=== PATIENT | male | born 1965 | race Caucasian/White ===

== ENCOUNTER 2020-05-10 17:11 | Emergency (ER) | payer MEDICARE, OTHER ==
[~2020-05-10 17:11] MED LIST: ARTIFICIAL TEAR15 M6 OS; PREDNISONE 20MG20 MG PO; VALACYCLOVIR500 MG PO; VISTARIL50 MG PO
[2020-05-10 19:07] LABS: BASOPHIL 0.6 % (0-2); EOSINOPHIL 2.8 % (0-5); HCT 40.9 % (42.0-52.0); HGB 13.7 g/dl (13.2-18.0); LYMPHOCYTE 34.4 % (15-48); MCHC 33.5 g/dL (32.0-36.0); MCV 89.7 fL (78.0-100.0); MONOCYTE 10.7 % (0-12); MPV 10.1 fL (6.0-9.5); NEUTROPHIL 50.8 % (41-80); NRBC 0; PLT 346 K/uL (150-400); RBC 4.56 M/uL (4.70-6.00); RDW 13.5 % (11.5-14.0); WBC 7.1 K/uL (4.0-10.5)
[2020-05-10 19:14] LABS: BILIRUBIN NEGATIVE (NEGATIVE); BLOOD NEGATIVE Ery/uL (NEGATIVE); CLARITY CLEAR (CLEAR); COLOR YELLOW (YELLOW); GLUCOSE (U) NORMAL (NORMAL); LEUKOCYTES NEGATIVE Leu/uL (NEGATIVE); NITRITE NEGATIVE (NEGATIVE); PROTEIN TRACE (LOW) mg/dL (NEGATIVE); SPECIFIC GRAVITY >=1.030 (1.001-1.030); UROBILINOGEN 0.2 mg/dL (0.2-1.0)
[2020-05-10 19:20] LABS: BACTERIA TRACE; URINARY WBC RARE
[2020-05-10 19:23] LABS: BILIRUBIN - TOTAL 0.4 mg/dL (0.2-1.0); BUN/CREAT RATIO (CALC) 12.7 RATIO; CREATININE 1.02 mg/dL (0.67-1.17); POTASSIUM 3.3 mmol/L (3.5-5.1)
[2020-05-10] MEDS ORDERED: CITRATE OF MAG296 ML PO (21:36)
== END 2020-05-10 21:55 | disposition home or self-care (01) ==
LOC: FER 17:11
PROVIDERS: Emergency Medicine
DX: K59.00 Constipation, unspecified (principal); R11.0 Nausea; R19.7 Diarrhea, unspecified; F17.210 Nicotine dependence, cigarettes, uncomplicated; Z87.19 Personal history of other diseases of the digestive system; Z88.0 Allergy status to penicillin
CPT/HCPCS: 36415; 74022; 80053; 81001; 82150; 83690; 85025; 87339; J2270; J2405; J7030

== ENCOUNTER 2020-08-26 07:12 | Emergency (ER) | payer MEDICARE, OTHER ==
[~2020-08-26 07:12] MED LIST changes: +CITRATE OF MAG296 ML PO
[2020-08-26 07:48] LABS: BASOPHIL 0.2 % (0-2); EOSINOPHIL 0.7 % (0-5); HCT 44.7 % (42.0-52.0); HGB 14.5 g/dl (13.2-18.0); LYMPHOCYTE 15.5 % (15-48); MCH 27.8 pg (25.0-31.0); MCHC 32.4 g/dL (32.0-36.0); MCV 85.8 fL (78.0-100.0); MONOCYTE 4.1 % (0-12); MPV 9.9 fL (6.0-9.5); NRBC 0; PLT 344 K/uL (150-400); RBC 5.21 M/uL (4.70-6.00); RDW 14.6 % (11.5-14.0); WBC 8.5 K/uL (4.0-10.5)
[2020-08-26 08:06] LABS: BILIRUBIN - TOTAL 0.3 mg/dL (0.2-1.0); BUN/CREAT RATIO (CALC) 12.1 RATIO; CREATININE 0.91 mg/dL (0.67-1.17); GLOBULIN (CALCULATION) 4.4 g/dL; POTASSIUM 3.5 mmol/L (3.5-5.1); TOTAL PROTEIN 8.4 g/dL (6.4-8.2)
[2020-08-26 08:16] LABS: BILIRUBIN NEGATIVE (NEGATIVE); BLOOD NEGATIVE Ery/uL (NEGATIVE); CLARITY CLEAR (CLEAR); COLOR YELLOW (YELLOW); GLUCOSE (U) NORMAL (NORMAL); LEUKOCYTES NEGATIVE Leu/uL (NEGATIVE); NITRITE NEGATIVE (NEGATIVE); PROTEIN NEGATIVE (NEGATIVE); SPECIFIC GRAVITY <=1.005 (1.001-1.030); UROBILINOGEN 0.2 mg/dL (0.2-1.0)
[2020-08-26 08:29] LABS: AMPHETAMINES NEGATIVE (NEGATIVE); BARBITURATES NEGATIVE (NEGATIVE); ECSTASY (MDMA) NEGATIVE (NEGATIVE); MARIJUANA (THC) NEGATIVE (NEGATIVE); METHADONE NEGATIVE (NEGATIVE); OPIATES NEGATIVE (NEGATIVE); OXYCODONE NEGATIVE (NEGATIVE)
== END 2020-08-26 10:28 | disposition home or self-care (01) ==
LOC: FER 07:12
PROVIDERS: Emergency Medicine
DX: I10 Essential (primary) hypertension (principal); G89.29 Other chronic pain; M54.9 Dorsalgia, unspecified; E11.9 Type 2 diabetes mellitus without complications; F17.210 Nicotine dependence, cigarettes, uncomplicated; Z76.5 Malingerer [conscious simulation]; Z88.0 Allergy status to penicillin
CPT/HCPCS: 36415; 80053; 80305; 81003; 85025; J1885; J7030

== ENCOUNTER 2021-03-03 09:40 | Emergency (ER) | payer OTHER ==
[~2021-03-03 09:40] MED LIST changes: +DULOXETINE HCL30 MG PO; +FLONASE ALLER15.8 ML; +GABAPENTIN600 MG PO; +OMEPRAZOLE 20MG20 MG PO; +ONDANSETRON HCL4 MG PO; +OXYCODONE HCL10 MG PO; +PANTOPRAZOLE SO40 MG PO; +PREGABALIN200 MG PO; +TAMSULOSIN HCL0.4 MG PO; +ZYRTEC10 MG PO
[2021-03-03] MEDS ORDERED: VENTOLIN HFA IN18 GM INH (10:38)
[2021-03-03] MEDS ORDERED: AZITHROMYCIN250 MG PO (10:38)
== END 2021-03-03 11:59 | disposition home or self-care (01) ==
LOC: FER 09:40
DX: J32.9 Chronic sinusitis, unspecified (principal); J40 Bronchitis, not specified as acute or chronic; F17.200 Nicotine dependence, unspecified, uncomplicated; Z20.822 Contact with and (suspected) exposure to COVID-19
CPT/HCPCS: 99283; U0002

== ENCOUNTER 2021-03-18 14:28 | Emergency (ER) | payer OTHER ==
[~2021-03-18 14:28] MED LIST changes: +AZITHROMYCIN250 MG PO; +VENTOLIN HFA IN18 GM INH
[2021-03-18 15:41] LABS: BASOPHIL 0.1 % (0-2); HCT 42.1 % (42.0-52.0); HGB 13.8 g/dl (13.2-18.0); LYMPHOCYTE 19.5 % (15-48); MCH 29.4 pg (25.0-31.0); MCHC 32.8 g/dL (32.0-36.0); MCV 89.8 fL (78.0-100.0); MONOCYTE 5.2 % (0-12); MPV 10.1 fL (6.0-9.5); NEUTROPHIL 73.8 % (41-80); NRBC 0; PLT 253 K/uL (150-400); RBC 4.69 M/uL (4.70-6.00); RDW 14.3 % (11.5-14.0); WBC 13.4 K/uL (4.0-10.5)
[2021-03-18 15:59] LABS: ALBUMIN 3.7 g/dL (3.4-5.0); BILIRUBIN - TOTAL 0.5 mg/dL (0.2-1.0); BUN/CREAT RATIO (CALC) 14.4 RATIO; CREATININE 1.46 mg/dL (0.67-1.17); GLOBULIN (CALCULATION) 3.4 g/dL; POTASSIUM 2.9 mmol/L (3.5-5.1); TOTAL PROTEIN 7.1 g/dL (6.4-8.2)
[2021-03-18 16:17] LABS: LACTIC ACID 1.7 mmol/L (0.4-1.9)
[2021-03-18 16:28] LABS: CORONAVIRUS 2019 SARS-COV-2 NEGATIVE (NEGATIVE); INFLUENZA A NAA NEGATIVE (NEGATIVE)
[2021-03-18 16:48] LABS: C-REACTIVE PROTEIN 1.2 mg/dL (<=0.90)
[2021-03-18 18:24] LABS: BILIRUBIN NEGATIVE (NEGATIVE); BLOOD NEGATIVE Ery/uL (NEGATIVE); CLARITY CLEAR (CLEAR); COLOR YELLOW (YELLOW); GLUCOSE (U) NORMAL (NORMAL); LEUKOCYTES NEGATIVE Leu/uL (NEGATIVE); NITRITE NEGATIVE (NEGATIVE); PROTEIN NEGATIVE (NEGATIVE); SPECIFIC GRAVITY 1.015 (1.001-1.030); UROBILINOGEN 0.2 mg/dL (0.2-1.0); pH 7.5 (5.0-9.0)
[2021-03-18 18:26] LABS: AMPHETAMINES NEGATIVE (NEGATIVE); BARBITURATES NEGATIVE (NEGATIVE); ECSTASY (MDMA) NEGATIVE (NEGATIVE); MARIJUANA (THC) NEGATIVE (NEGATIVE); METHADONE NEGATIVE (NEGATIVE); OPIATES NEGATIVE (NEGATIVE); OXYCODONE POSITIVE (NEGATIVE)
[2021-03-18 18:31] LABS: URINARY RBC RARE
[2021-03-18 19:50] LABS: BUN/CREAT RATIO (CALC) 16.4 RATIO; CREATININE 1.16 mg/dL (0.67-1.17); POTASSIUM 3.3 mmol/L (3.5-5.1)
== END 2021-03-18 20:58 | disposition home or self-care (01) ==
LOC: FER 14:28
PROVIDERS: Emergency Medicine; Physician Assistant
DX: E86.0 Dehydration (principal); F15.10 Other stimulant abuse, uncomplicated; J44.9 Chronic obstructive pulmonary disease, unspecified; I10 Essential (primary) hypertension; F17.210 Nicotine dependence, cigarettes, uncomplicated; Z20.822 Contact with and (suspected) exposure to COVID-19; Z88.0 Allergy status to penicillin; Z88.1 Allergy status to other antibiotic agents
CPT/HCPCS: 36415; 71045; 80048; 80053; 80305; 81001; 82550; 82728; 83605; 83615; 84484; 85025; 86140; 93005; J7030; U0002

== ENCOUNTER 2021-04-16 16:22 | Emergency (ER) | payer OTHER ==
[2021-04-16 17:41] LABS: CORONAVIRUS 2019 SARS-COV-2 NEGATIVE (NEGATIVE); INFLUENZA A NAA NEGATIVE (NEGATIVE)
== END 2021-04-16 17:20 | disposition left against medical advice (07) ==
LOC: FER 16:22
PROVIDERS: Nurse Practitioner Family
DX: R06.02 Shortness of breath (principal); R05.9 Cough, unspecified; I10 Essential (primary) hypertension; F17.210 Nicotine dependence, cigarettes, uncomplicated; K21.9 Gastro-esophageal reflux disease without esophagitis; Z53.29 Procedure and treatment not carried out because of patient's decision for other reasons; Z79.899 Other long term (current) drug therapy
CPT/HCPCS: 99283; U0002

== ENCOUNTER 2021-04-30 19:44 | Emergency (ER) | payer OTHER ==
[2021-04-30 21:21] LABS: BASOPHIL 0.3 % (0-2); HCT 41.8 % (42.0-52.0); HGB 13.5 g/dl (13.2-18.0); LYMPHOCYTE 26.9 % (15-48); MCH 28.4 pg (25.0-31.0); MCHC 32.3 g/dL (32.0-36.0); MCV 87.8 fL (78.0-100.0); MONOCYTE 5.8 % (0-12); MPV 10.5 fL (6.0-9.5); NEUTROPHIL 65.4 % (41-80); NRBC 0; PLT 294 K/uL (150-400); RBC 4.76 M/uL (4.70-6.00); RDW 14.4 % (11.5-14.0); WBC 10.9 K/uL (4.0-10.5)
[2021-04-30 21:34] LABS: ALBUMIN 3.6 g/dL (3.4-5.0); BILIRUBIN - TOTAL 0.3 mg/dL (0.2-1.0); BUN/CREAT RATIO (CALC) 18.5 RATIO; CREATININE 0.92 mg/dL (0.67-1.17); GLOBULIN (CALCULATION) 3.3 g/dL; POTASSIUM 3.3 mmol/L (3.5-5.1); TOTAL PROTEIN 6.9 g/dL (6.4-8.2)
[2021-04-30 23:05] LABS: BILIRUBIN NEGATIVE (NEGATIVE); BLOOD NEGATIVE Ery/uL (NEGATIVE); CLARITY CLEAR (CLEAR); COLOR YELLOW (YELLOW); GLUCOSE (U) NORMAL (NORMAL); LEUKOCYTES NEGATIVE Leu/uL (NEGATIVE); NITRITE NEGATIVE (NEGATIVE); PROTEIN NEGATIVE (NEGATIVE); SPECIFIC GRAVITY 1.015 (1.001-1.030); UROBILINOGEN 0.2 mg/dL (0.2-1.0)
[2021-04-30 23:06] LABS: AMPHETAMINES NEGATIVE (NEGATIVE); BARBITURATES NEGATIVE (NEGATIVE); ECSTASY (MDMA) NEGATIVE (NEGATIVE); MARIJUANA (THC) NEGATIVE (NEGATIVE); METHADONE NEGATIVE (NEGATIVE); OPIATES NEGATIVE (NEGATIVE); OXYCODONE NEGATIVE (NEGATIVE)
== END 2021-04-30 23:56 | disposition left against medical advice (07) ==
LOC: FER 19:44
PROVIDERS: Emergency Medicine; Nurse Practitioner Family
DX: R10.9 Unspecified abdominal pain (principal); F17.210 Nicotine dependence, cigarettes, uncomplicated; K21.9 Gastro-esophageal reflux disease without esophagitis; Z79.899 Other long term (current) drug therapy; Z88.0 Allergy status to penicillin
CPT/HCPCS: 36415; 80053; 80305; 81003; 82150; 83690; 85025; J7030; Q9967

== ENCOUNTER 2021-07-24 23:42 | Emergency (ER) | payer MEDICARE, OTHER ==
[2021-07-25 00:18] LABS: BASOPHIL 0.2 % (0-2); EOSINOPHIL 2.2 % (0-5); HCT 38.7 % (42.0-52.0); HGB 12.2 g/dl (13.2-18.0); LYMPHOCYTE 20.8 % (15-48); MCH 27.9 pg (25.0-31.0); MCHC 31.5 g/dL (32.0-36.0); MCV 88.6 fL (78.0-100.0); MONOCYTE 9.6 % (0-12); MPV 10.3 fL (6.0-9.5); NEUTROPHIL 66.9 % (41-80); NRBC 0; PLT 255 K/uL (150-400); RBC 4.37 M/uL (4.70-6.00); RDW 15.2 % (11.5-14.0); WBC 9.7 K/uL (4.0-10.5)
[2021-07-25] MEDS ORDERED: MIRALAX 238GM238 GM PO (00:42)
[2021-07-25] MEDS ORDERED: SENNA PLUS 8.61 EACH PO (00:42)
[2021-07-25 00:50] LABS: ALBUMIN 3.3 g/dL (3.4-5.0); BILIRUBIN - TOTAL 0.5 mg/dL (0.2-1.0); BUN/CREAT RATIO (CALC) 11.4 RATIO; CREATININE 0.88 mg/dL (0.67-1.17); GLOBULIN (CALCULATION) 3.9 g/dL; POTASSIUM 3.8 mmol/L (3.5-5.1); TOTAL PROTEIN 7.2 g/dL (6.4-8.2)
[2021-07-25 01:03] LABS: BILIRUBIN NEGATIVE (NEGATIVE); BLOOD NEGATIVE Ery/uL (NEGATIVE); CLARITY CLEAR (CLEAR); COLOR YELLOW (YELLOW); GLUCOSE (U) NORMAL (NORMAL); LEUKOCYTES NEGATIVE Leu/uL (NEGATIVE); NITRITE NEGATIVE (NEGATIVE); PROTEIN NEGATIVE (NEGATIVE); UROBILINOGEN 0.2 mg/dL (0.2-1.0)
== END 2021-07-25 01:28 | disposition home or self-care (01) ==
LOC: FER 23:42
PROVIDERS: Internal Medicine
DX: R10.31 Right lower quadrant pain (principal); R10.32 Left lower quadrant pain; K59.00 Constipation, unspecified; F17.210 Nicotine dependence, cigarettes, uncomplicated; Z88.0 Allergy status to penicillin
CPT/HCPCS: 36415; 80053; 81003; 83690; 84145; 84484; 85025; 93005

== ENCOUNTER 2021-08-02 07:19 | Emergency (ER) | payer MEDICARE ==
[~2021-08-02 07:19] MED LIST changes: +MIRALAX 238GM238 GM PO; +SENNA PLUS 8.61 EACH PO
[2021-08-02 08:25] LABS: BASOPHIL 0.5 % (0-2); EOSINOPHIL 1.7 % (0-5); HGB 13.1 g/dl (13.2-18.0); MCH 27.9 pg (25.0-31.0); MCV 87.2 fL (78.0-100.0); MONOCYTE 3.6 % (0-12); MPV 10.1 fL (6.0-9.5); NEUTROPHIL 76.9 % (41-80); NRBC 0; PLT 386 K/uL (150-400); RDW 14.6 % (11.5-14.0); WBC 6.6 K/uL (4.0-10.5)
[2021-08-02 08:32] LABS: ALBUMIN 3.3 g/dL (3.4-5.0); BILIRUBIN - TOTAL 0.5 mg/dL (0.2-1.0); CREATININE 1.08 mg/dL (0.67-1.17); GLOBULIN (CALCULATION) 4.8 g/dL; POTASSIUM 3.6 mmol/L (3.5-5.1); TOTAL PROTEIN 8.1 g/dL (6.4-8.2)
[2021-08-02 09:08] LABS: BILIRUBIN NEGATIVE (NEGATIVE); BLOOD NEGATIVE Ery/uL (NEGATIVE); CLARITY CLEAR (CLEAR); COLOR YELLOW (YELLOW); GLUCOSE (U) NORMAL (NORMAL); LEUKOCYTES NEGATIVE Leu/uL (NEGATIVE); NITRITE NEGATIVE (NEGATIVE); PROTEIN NEGATIVE (NEGATIVE); SPECIFIC GRAVITY <=1.005 (1.001-1.030); UROBILINOGEN 0.2 mg/dL (0.2-1.0)
[2021-08-02 09:14] LABS: MARIJUANA (THC) NEGATIVE (NEGATIVE)
[2021-08-02 09:15] LABS: AMPHETAMINES NEGATIVE (NEGATIVE); BARBITURATES NEGATIVE (NEGATIVE); ECSTASY (MDMA) NEGATIVE (NEGATIVE); METHADONE NEGATIVE (NEGATIVE); OPIATES POSITIVE (NEGATIVE); OXYCODONE POSITIVE (NEGATIVE)
== END 2021-08-02 09:27 | disposition home or self-care (01) ==
LOC: FER 07:19
PROVIDERS: Emergency Medicine
DX: E86.0 Dehydration (principal); R42 Dizziness and giddiness; F17.210 Nicotine dependence, cigarettes, uncomplicated
CPT/HCPCS: 36415; 80053; 80305; 81003; 85025; 99284; J7030

== ENCOUNTER 2021-08-23 13:48 | Emergency (ER) | payer MEDICARE ==
[2021-08-23] MEDS ORDERED: CYCLOBENZAPRINE10 MG PO (16:20)
[2021-08-23] MEDS ORDERED: PREDNISONE 20MG20 MG PO (16:20)
== END 2021-08-23 16:35 | disposition home or self-care (01) ==
LOC: FER 13:48
DX: M54.42 Lumbago with sciatica, left side (principal); G89.29 Other chronic pain; J45.909 Unspecified asthma, uncomplicated; F17.210 Nicotine dependence, cigarettes, uncomplicated
CPT/HCPCS: 99283; J1885

== ENCOUNTER 2021-09-03 14:20 | Emergency (ER) | payer MEDICARE ==
[~2021-09-03 14:20] MED LIST changes: +CYCLOBENZAPRINE10 MG PO
[2021-09-03 15:22] LABS: BASOPHIL 0.6 % (0-2); EOSINOPHIL 4.5 % (0-5); HCT 41.7 % (42.0-52.0); HGB 13.5 g/dl (13.2-18.0); LYMPHOCYTE 33.1 % (15-48); MCH 28.4 pg (25.0-31.0); MCHC 32.4 g/dL (32.0-36.0); MCV 87.6 fL (78.0-100.0); MONOCYTE 11.2 % (0-12); MPV 10.5 fL (6.0-9.5); NEUTROPHIL 50.4 % (41-80); NRBC 0; PLT 238 K/uL (150-400); RBC 4.76 M/uL (4.70-6.00); RDW 15.3 % (11.5-14.0); WBC 4.8 K/uL (4.0-10.5)
[2021-09-03 15:38] LABS: BUN/CREAT RATIO (CALC) 9.7 RATIO; CREATININE 0.93 mg/dL (0.67-1.17); POTASSIUM 3.9 mmol/L (3.5-5.1)
[2021-09-03] MEDS ORDERED: LASIX10 MG/ML PO (16:07)
== END 2021-09-03 16:49 | disposition home or self-care (01) ==
LOC: FER 14:20
PROVIDERS: Emergency Medicine
DX: R60.0 Localized edema (principal); I10 Essential (primary) hypertension; J44.9 Chronic obstructive pulmonary disease, unspecified; F17.210 Nicotine dependence, cigarettes, uncomplicated
CPT/HCPCS: 36415; 71045; 80048; 83880; 85025; 93005

== ENCOUNTER 2021-09-27 10:26 | Emergency (ER) | payer MEDICARE, OTHER ==
[~2021-09-27 10:26] MED LIST changes: +LASIX10 MG/ML PO
[2021-09-27] MEDS ORDERED: PREDNISONE 20MG20 MG PO (11:27)
[2021-09-28] MEDS ORDERED: SENNA PLUS 8.61 EACH PO (05:45)
[2021-09-28] MEDS ORDERED: CYMBALTA60 MG PO (05:45)
[2021-09-28] MEDS ORDERED: MIRALAX 238GM238 GM PO (05:45)
== END 2021-09-27 11:46 | disposition home or self-care (01) ==
LOC: FER 10:26
DX: G89.29 Other chronic pain (principal); M54.6 Pain in thoracic spine; F17.210 Nicotine dependence, cigarettes, uncomplicated
CPT/HCPCS: 99283; J1885

== ENCOUNTER 2021-09-28 03:21 | Emergency (ER) | payer MEDICARE, OTHER ==
[2021-09-28 04:27] LABS: BASOPHIL 0.1 % (0-2); EOSINOPHIL 0 % (0-5); HCT 44.8 % (42.0-52.0); HGB 14.9 g/dl (13.2-18.0); LYMPHOCYTE 12.5 % (15-48); MCH 28.5 pg (25.0-31.0); MCHC 33.3 g/dL (32.0-36.0); MCV 85.7 fL (78.0-100.0); MONOCYTE 3.9 % (0-12); MPV 10.9 fL (6.0-9.5); NEUTROPHIL 83.2 % (41-80); NRBC 0; PLT 298 K/uL (150-400); RBC 5.23 M/uL (4.70-6.00); RDW 15.5 % (11.5-14.0); WBC 9.4 K/uL (4.0-10.5)
[2021-09-28 04:46] LABS: ALBUMIN 4.1 g/dL (3.4-5.0); BILIRUBIN - TOTAL 0.4 mg/dL (0.2-1.0); BUN/CREAT RATIO (CALC) 18.2 RATIO; CREATININE 0.99 mg/dL (0.67-1.17); POTASSIUM 3.9 mmol/L (3.5-5.1); TOTAL PROTEIN 8.1 g/dL (6.4-8.2)
[2021-09-28 05:07] LABS: CORONAVIRUS 2019 SARS-COV-2 NEGATIVE (NEGATIVE); INFLUENZA A NAA NEGATIVE (NEGATIVE)
[2021-09-28] MEDS ORDERED: SENNA PLUS 8.61 EACH PO (05:45)
[2021-09-28] MEDS ORDERED: MIRALAX 238GM238 GM PO (05:45)
[2021-09-28] MEDS ORDERED: CYMBALTA60 MG PO (05:45)
== END 2021-09-28 06:50 | disposition home or self-care (01) ==
LOC: FER 03:21
PROVIDERS: Internal Medicine
DX: K59.00 Constipation, unspecified (principal); F41.9 Anxiety disorder, unspecified; F19.239 Other psychoactive substance dependence with withdrawal, unspecified; K21.9 Gastro-esophageal reflux disease without esophagitis; J45.909 Unspecified asthma, uncomplicated; F17.210 Nicotine dependence, cigarettes, uncomplicated; Z20.822 Contact with and (suspected) exposure to COVID-19; Z79.899 Other long term (current) drug therapy
CPT/HCPCS: 36415; 80053; 84145; 85025; J2060; J2405; J7120; U0002